=== PATIENT | male | born 1950 | race Caucasian/White ===

== ENCOUNTER 2020-06-07 11:02 | Emergency (ER) | payer MEDICARE ==
[2020-06-07] MEDS ORDERED: Sodium Chloride 0.9% 10 ML Syringe FLUSH PRN (11:49)
[2020-06-07] MEDS ORDERED: Sodium Chloride 0.9% 1,000 ML IV ONE ×2 (11:53→13:08)
[2020-06-07] MEDS ORDERED: HYDROmorphone 1 MG/ML Syringe IVPUSH ONE (11:53)
[2020-06-07] MEDS ORDERED: Ondansetron 4 MG/2 ML SDV IVPUSH ONE (11:53)
--- NOTE | 2020-06-07 12:01 | EDM.PDOC ---
ED HPI GENERAL MEDICAL PROBLEM - General Chief Complaint: Lower Extremity Injury/Pain Stated Complaint: R HIP PAIN Time Seen by Provider: 06/07/20 11:23 Source of Information: Reports: Patient, RN Notes Reviewed History Limitations: Reports: No Limitations - History of Present Illness INITIAL COMMENTS - FREE TEXT/NARRATIVE: Patient is a 70-year-old male who presents to the ED for evaluation of a fall and right hip pain. Patient notes that he believes he fell Thursday evening, he was on the steps going up on his wooden deck, and he thinks he missed a step, as it was dark and ended up falling onto his right hip. Patient states at that time he was unable to get up on his own, but he thinks he only laid on the deck for about 10 minutes before someone come to find him. He did not hit his head or lose consciousness. He has some minor abrasions on his right forearm with scabs after the fall. He notes that he was not able to bear weight after the injury, and laying down his leg is externally rotated. He states that he is not noticing any bruising. He notes that he has not had fever/chills, cough/shortness of breath, nausea/vomiting/diarrhea, he is not having pain anywhere else in his body. He notes that he did not take anything for pain medication regarding the hip pain, greatest pain at a 10 out of 10, he states that it does radiate down his right leg as well. He still can wiggle his toes in all range of motion without much difficulty. Patient drinks 6 beers daily, is a [id number] smoker, but denies any drug use. He states he does have a history of necrotizing fasciitis and does have a colostomy due to this, other ochoa he denies any other past medical history Right Leg Pain Score (Numeric/FACES): 10 - Related Data Allergies Allergy/AdvReac Type Severity Reaction Status Date / Time Penicillins Allergy Severe Cannot Verified 06/07/20 11:21 Remember Home Meds: Home Meds Loperamide [Imodium] 2 mg PO DAILY 06/07/20 [History] Past Medical History Neurological History: Reports: Other (See Below) Other Neuro History: tremors Psychiatric History: Reports: Anxiety, Depression Dermatologic History: Reports: Other (See Below) Other Dermatologic History: necrotizing fascitis - Past Surgical History GI Surgical History: Reports: Colostomy Musculoskeletal Surgical History: Reports: 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 ED EXAM, GENERAL - Physical Exam Exam: See Below Exam Limited By: No Limitations General Appearance: Alert, WD/WN, No Apparent Distress Eye Exam: Bilateral Eye: EOMI, Normal Inspection, PERRL Throat/Mouth: Normal Inspection, Normal Lips, Normal Teeth, Normal Oropharynx, Normal Voice, No Airway Compromise Head: Atraumatic, Other Neck: Normal Inspection Respiratory/Chest: No Respiratory Distress, No Accessory Muscle Use, Chest Non- Tender, Rhonchi (Pt has a smoker's cough and has coarse breath sounds). No: Wheezing Cardiovascular: Normal Peripheral Pulses, Regular Rate, Rhythm, No Murmur GI/Abdominal: Normal Bowel Sounds, Soft, Non-Tender, No Distention, No Mass Extremities: Normal Inspection, Normal Capillary Refill (right leg is externally rotated), Leg Pain (R upper leg pain on the lateral hip), Limited Range of Motion (pt can't move the right leg much at all) Neurological: Alert, Oriented, Normal Cognition Psychiatric: Normal Affect, Normal Mood Skin Exam: Warm, Dry, Intact, Normal Color, No Rash EKG INTERPRETATION EKG Date: 06/07/20 Time: 12:12 Rhythm: NSR Rate (Beats/Min): 93 [place]: Normal P-Wave: Present QRS: Normal ST-T: Normal QT: Normal Comparison: NA - No Prior EKG EKG Interpretation Comments: No obvious ischemia or acute ST changes noted, reviewed by myself and Dr. Medley. Course - Vital Signs Last Recorded V/S: Last Vital Signs Temp 98.0 F 06/07/20 11:15 Pulse 93 06/07/20 11:15 Resp 20 06/07/20 11:15 BP 146/87 H 06/07/20 11:15 Pulse Ox 95 06/07/20 11:15 - Orders/Labs/Meds Orders: Active Orders 24 hr Category Date Time Status EKG Documentation Completion [RC] STAT Care 06/07/20 11:52 Active Peripheral IV Care [RC] . DIRECTED Care 06/07/20 11:49 Active Magnesium Sulfate/Water [Magnesium Sulfate in Water Med 06/07/20 13:08 Active Premix] 2 gm Premix Bag 1 bag IV ONETIME Sodium Chloride 0.9% [Normal Saline] 1,000 ml Med 06/07/20 13:08 Active IV ONETIME Sodium Chloride 0.9% [Saline Flush] Med 06/07/20 11:49 Active 10 ml FLUSH ASDIRECTED PRN Peripheral IV Insertion Adult [OM.PC] Routine Oth 06/07/20 11:49 Ordered Medication Orders Magnesium Sulfate 2 gm/ Premix 50 mls @ 25 mls/hr IV ONETIME ONE Stop: 06/07/20 15:07 Last Admin: 06/07/20 13:15 Dose: 25 mls/hr Documented by: RIO Sodium Chloride (Normal Saline) 1,000 mls @ 150 mls/hr IV ONETIME ONE Stop: 06/07/20 19:47 Last Admin: 06/07/20 13:31 Dose: 150 mls/hr Documented by: RIO Sodium Chloride (Saline Flush) 10 ml FLUSH ASDIRECTED PRN PRN Reason: Keep Vein Open Last Admin: 06/07/20 12:14 Dose: 10 ml Documented by: YAZMIN Labs: Laboratory Tests 06/07/20 06/07/20 06/07/20 Range/Units 12:15 12:15 12:15 WBC 10.21 H (4.23-9.07) K/mm3 RBC 3.68 L (4.63-6.08) M/mm3 Hgb 13.3 L (13.7-17.5) gm/dl Hct 37.5 L (40.1-51.0) % MCV 101.9 H (79.0-92.2) fl MCH 36.1 H (25.7-32.2) pg MCHC 35.5 (32.2-35.5) g/dl RDW Std Deviation 46.6 H (35.1-43.9) fL Plt Count 232 (163-337) K/mm3 MPV 9.5 (9.4-12.3) fl Neut % (Auto) 80.2 H (34.0-67.9) % Lymph % (Auto) 7.9 L (21.8-53.1) % [place] % (Auto) 11.5 (5.3-12.2) % Eos % (Auto) 0 L (0.8-7.0) Baso % (Auto) 0.2 (0.1-1.2) % Neut # (Auto) 8.19 H (1.78-5.38) K/mm3 Lymph # (Auto) 0.81 L (1.32-3.57) K/mm3 [place] # (Auto) 1.17 H (0.30-0.82) K/mm3 Eos # (Auto) 0.00 L (0.04-0.54) K/mm3 Baso # (Auto) 0.02 (0.01-0.08) K/mm3 Manual Slide Review Abnormal smear Sodium 133 L (136-145) mEq/L Potassium 3.3 L (3.5-5.1) mEq/L Chloride 93 L (98-107) mEq/L Carbon Dioxide 29 (21-32) mEq/L Anion Gap 14.3 (5-15) BUN 20 H (7-18) mg/dL Creatinine 0.8 (0.7-1.3) mg/dL Est Cr Clr Drug Dosing 83.87 mL/min Estimated GFR (MDRD) > 60 (>60) mL/min BUN/Creatinine Ratio 25.0 H (14-18) Glucose 126 H (80-115) mg/dL Calcium 10.0 (8.5-10.1) mg/dL Magnesium 1.7 L (1.8-2.4) mg/dl Total Bilirubin 2.5 H (0.2-1.0) mg/dL AST 51 H (15-37) U/L ALT 46 (16-63) U/L Alkaline Phosphatase 105 (46-116) U/L Total Protein 8.1 (6.4-8.2) g/dl Albumin 3.7 (3.4-5.0) g/dl Globulin 4.4 gm/dL Albumin/Globulin Ratio 0.8 L (1-2) Ethyl Alcohol 0.00 (0.00) gm% Meds: Medications Generic Name Dose Route Start Last Admin Trade Name Freq PRN Reason Stop Dose Admin Magnesium Sulfate 2 gm/ Premix 50 mls @ 25 mls/hr 06/07/20 13:08 06/07/20 13:15 IV 06/07/20 15:07 25 mls/hr ONETIME ONE Administration Sodium Chloride 1,000 mls @ 150 mls/hr 06/07/20 13:08 06/07/20 13:31 Normal Saline IV 06/07/20 19:47 150 mls/hr ONETIME ONE Administration Sodium Chloride 10 ml 06/07/20 11:49 06/07/20 12:14 Saline Flush FLUSH 10 ml ASDIRECTED PRN Administration Keep Vein Open Discontinued Medications Generic Name Dose Route Start Last Admin Trade Name Freq PRN Reason Stop Dose Admin Hydromorphone HCl 1 mg 06/07/20 11:53 06/07/20 12:13 Dilaudid IVPUSH 06/07/20 11:54 1 mg ONETIME ONE Administration Hydromorphone HCl 0.5 mg 06/07/20 13:41 06/07/20 13:46 Dilaudid IVPUSH 06/07/20 13:42 0.5 mg ONETIME ONE Administration Sodium Chloride 1,000 mls @ 999 mls/hr 06/07/20 11:53 06/07/20 12:14 Normal Saline IV 06/07/20 12:53 999 mls/hr ONETIME ONE Administration Ondansetron HCl 4 mg 06/07/20 11:53 06/07/20 12:14 Zofran IVPUSH 06/07/20 11:54 4 mg ONETIME ONE Administration Potassium Chloride 40 meq 06/07/20 13:03 06/07/20 13:15 Klor-Con M20 PO 06/07/20 13:04 40 meq ONETIME ONE Administration - Re-Assessments/Exams Free Text/Narrative Re-Assessment/Exam: 06/07/20 12:09 Patient presents to the ED his right hip pain. I do suspect clinically that the hip is fractured or the femur at least is fractured, due to his physical exam. Have ordered hip x-ray, some pain medications some fluids, and basic labs for initial management. We currently do not have Ortho fashion consultant today or through the weekend. He will need to go to [place] for fixation if the hip is in fact broken. 06/07/20 12:24 Patient does appear to have an intertrochanteric fracture of the right hip. Official radiology read is pending at this time. EKG is done, and demonstrates no acute ischemic changes. This was reviewed by myself and Dr. Medley. 06/07/20 13:05 Labs have been obtained, white blood cell count is mildly elevated at 10.21, with 80% neutrophils, no bandemia noted on auto differential. Potassium is mildly low at 3.3 along with magnesium at 1.7. Patient has no renal insufficiency creatinine and GFR within normal limits. Total bilirubin is a little bit elevated, liver enzymes are essentially normal. Patient again is a chronic daily drinker. I was in contact with [facility] in [place], Dr. Roque is the personalization specialist fashion consultant, he is currently in surgery, but will call back when he is done with his case. 06/07/20 13:53 Patient's last drink was roughly 1-1/2 days ago, blood alcohol level is 0.00. He states he does not feel any sort of withdrawal type symptoms at this time. Will monitor for these. We will let the accepting doctor know that he will likely have out a rough time while rehabbing from his hip fracture due to his alcohol use. Departure - Departure Time of Disposition: 14:25 Disposition: DC/Tfer to Acute Hospital 02 Condition: Good Clinical Impression: Fracture, intertrochanteric, right femur Qualifiers: Encounter type: initial encounter Fracture type: closed Fracture alignment: displaced Qualified Code(s): S72.141A - Displaced intertrochanteric fracture of right femur, initial encounter for closed fracture - Discharge Information *PRESCRIPTION DRUG MONITORING PROGRAM REVIEWED*: No *COPY OF PRESCRIPTION DRUG MONITORING REPORT IN PATIENT LUBA: No Referrals: PCP,Not In Area [Primary Care Provider] - Forms: ED Department Discharge Sepsis Event Note (ED) - Evaluation Sepsis Screening Result: No Definite Risk - Focused Exam Vital Signs: Vital Signs Temp Pulse Resp BP Pulse Ox 06/07/20 11:15 98.0 F 93 20 146/87 H 95 - My Orders Last 24 Hours: My Active Orders 06/07/20 11:49 Peripheral IV Care [RC] . DIRECTED Sodium Chloride 0.9% [Saline Flush] 10 ml FLUSH ASDIRECTED PRN Peripheral IV Insertion Adult [OM.PC] Routine 06/07/20 11:52 EKG Documentation Completion [RC] STAT 06/07/20 13:08 Magnesium Sulfate/Water [Magnesium Sulfate in Water Premix] 2 gm Premix Bag 1 bag IV ONETIME Sodium Chloride 0.9% [Normal Saline] 1,000 ml IV ONETIME - Assessment/Plan Last 24 Hours: My Active Orders 06/07/20 11:49 Peripheral IV Care [RC] . DIRECTED Sodium Chloride 0.9% [Saline Flush] 10 ml FLUSH ASDIRECTED PRN Peripheral IV Insertion Adult [OM.PC] Routine 06/07/20 11:52 EKG Documentation Completion [RC] STAT 06/07/20 13:08 Magnesium Sulfate/Water [Magnesium Sulfate in Water Premix] 2 gm Premix Bag 1 bag IV ONETIME Sodium Chloride 0.9% [Normal Saline] 1,000 ml IV ONETIME
[2020-06-07] MEDS ORDERED: Potassium Chloride 20 MEQ Tab.ER PO ONE (13:03)
[2020-06-07] MEDS ORDERED: Magnesium Sulfate/Water 2 GM in Premix Bag 1 BAG IV ONE (13:08)
--- NOTE | 2020-06-07 13:22 | CR ---
Pelvis and right hip: AP view of the pelvis was obtained as well as AP and lateral views of the right hip. Ostomy is noted overlying the left iliac wing. Intertrochanteric fracture is noted within the right hip. Minimal displacement is seen. Osteopenia is noted. Mild scoliosis is noted within the spine. Mild degenerative change is scattered within the visualized spine. Vascular calcification is noted. Impression: 1. Minimally displaced intertrochanteric fracture within the right hip. 2. Other nonacute findings as described above. Diagnostic code #3 This report was dictated in MDT
[2020-06-07] MEDS ORDERED: HYDROmorphone 0.5 MG/0.5 ML Syringe IVPUSH ONE (13:41)
== END 2020-06-07 15:10 ==
LOC: JD.ED 11:02
DX: S72.141A Displaced intertrochanteric fracture of right femur, initial encounter for closed fracture (principal); F17.210 Nicotine dependence, cigarettes, uncomplicated; Z88.0 Allergy status to penicillin; W10.9XXA Fall (on) (from) unspecified stairs and steps, initial encounter
CPT/HCPCS: 36415; 73502; 80053; 80307; 83735; 85025; 93005; 96365; 96366; 96375; 96376; 99285; A9270; J1170; J2405; J3475; J7030; U0002